=== PATIENT | female | born 1985 | race African-American/Black ===

== ENCOUNTER 2021-10-27 00:01 | Emergency (ER) | payer MEDICAID ==
[~2021-10-27] VITALS: Ht 167.6 cm; Wt 86.0 kg
[2021-10-27] MEDS ORDERED: IBUPROFEN 600MG TABLET PO STA (04:24)
[2021-10-27] MEDS ORDERED: NAPR-681 PO (05:12)
[2021-10-27] MEDS ORDERED: CYCL5TAB PO (05:12)
[2021-10-27 05:17] VITALS: BP 120/63
== END 2021-10-27 05:17 | disposition home or self-care (01) ==
LOC: ER 00:01
DX: R07.89 Other chest pain (principal); M54.59 Other low back pain; G89.11 Acute pain due to trauma; V44.5XXA Car driver injured in collision with heavy transport vehicle or bus in traffic accident, initial encounter; Y93.89 Activity, other specified; Y92.488 Other paved roadways as the place of occurrence of the external cause
CPT/HCPCS: 71045; 72100; 93005; 99284